=== PATIENT | female | born 1965 | race Caucasian/White ===

== ENCOUNTER 2019-10-22 14:07 | Outpatient (CLI) | payer OTHER ==
--- NOTE | 2019-10-22 14:30 | RAD ---
EXAM: XR Knee Rt 4 View STANDARD PROVIDED CLINICAL HISTORY: Pain FINDINGS: There is no evidence for fracture or other acute osseous abnormality. Alignment appears anatomic. Michelle nt spaces appear preserved. IMPRESSION: No evidence for an acute osseous abnormality or significant arthropathy.
== END 2019-10-22 14:08 | disposition home or self-care (01) ==
LOC: BICRAD 14:07
PROVIDERS: ATTEND Family Medicine
DX: M25.561 Pain in right knee (principal)